=== PATIENT | female | born 1985 | race Caucasian/White ===

== ENCOUNTER 2022-08-12 13:34 | Outpatient (CLI) | payer MEDICAID, SELFPAY ==
[2022-08-12 21:52] LABS: Albumin* 4.8 g/dL (3.3-5.0); Chloride* 102 mmol/L (96-114); Potassium* 4.8 mmol/L (3.6-5.1); Sodium* 139 mmol/L (135-149)
[2022-08-12 21:54] LABS: Carbon Dioxide* 28 mmol/L (20-32); Cholesterol* 179 mg/dL (90-199); Creatinine* 0.7 mg/dL (0.5-1.5); Estimated Glomerular Filt Rate 115 ml/min
[2022-08-12 21:55] LABS: Alanine Aminotransferase* 65 U/L (4-35); Alkaline Phosphatase* 88 U/L (40-150); Aspartate Amino Transferase* 51 U/L (12-35); Bilirubin Total* 0.4 mg/dL (0.1-1.5); Blood Urea Nitrogen* 12 mg/dL (5-24); Calcium* 9.7 mg/dL (8.4-10.6); Glucose* 91 mg/dL (60-115); HDL Cholesterol* 47 mg/dL (>=50); LDL Cholesterol Calculated 108 mg/dL (<100); Total Protein* 7.7 g/dL (6.0-8.3); Triglycerides* 119 mg/dL (40-149)
[2022-08-12 23:45] LABS: GC DNA Amplified* NOT DETECTED (No Detected)
[2022-08-12 23:48] LABS: Chlamydia DNA Amplified* DETECTED (No Detected)
[2022-08-13 00:24] LABS: HIV 1/2/P24 Combo Screen* Negative (Negative)
[2022-08-13 00:31] LABS: Hepatitis C Virus Antibody* Negative (Negative)
[2022-08-14 20:14] LABS: Rapid Plasma Reagin (RPR) Non Reactive (Non Reactive)
== END 2022-08-12 13:35 | disposition home or self-care (01) ==
PROVIDERS: PCP Physician Assistant Medical; Visit Provider Physician Assistant Medical
DX: Z00.00 Encounter for general adult medical examination without abnormal findings (principal); R03.0 Elevated blood-pressure reading, without diagnosis of hypertension; Z13.6 Encounter for screening for cardiovascular disorders; Z13.29 Encounter for screening for other suspected endocrine disorder; Z11.3 Encounter for screening for infections with a predominantly sexual mode of transmission
CPT/HCPCS: 80053; 80061; 84443; 86592; 86703; 86803; 87086; 87491; 87591

== ENCOUNTER 2022-09-23 11:46 | Outpatient (CLI) | payer MEDICAID, SELFPAY ==
[2022-09-23 23:35] LABS: Chlamydia DNA Amplified* NOT DETECTED (No Detected); GC DNA Amplified* NOT DETECTED (No Detected)
== END 2022-09-23 11:47 | disposition home or self-care (01) ==
LOC: LKVREF 11:46
PROVIDERS: PCP Physician Assistant Medical; Visit Provider Physician Assistant Medical
DX: A74.9 Chlamydial infection, unspecified (principal)
CPT/HCPCS: 87491; 87591

== ENCOUNTER 2024-05-16 12:52 | Outpatient (CLI) | payer MEDICAID, SELFPAY | END 2024-05-16 12:53 | disposition home or self-care (01) | PROVIDERS: PCP Physician Assistant Medical; Visit Provider Physician Assistant Medical | DX: E66.9 Obesity, unspecified (principal) | CPT/HCPCS: 80053; 84443 ==

== ENCOUNTER 2024-10-24 18:47 | Emergency (ER) | payer MEDICAID, SELFPAY ==
--- NOTE | 2024-10-24 18:51 | CRLHL7_ITS ---
For Patients: As a result of the Century Cures Act, medical imaging exams and procedure reports are released immediately into your electronic medical record. You may view this report before your referring provider. If you have questions, please contact your health care provider. INDICATION: Leg pain and swelling. TECHNIQUE: Ultrasound venous duplex lower right extremity. Compression venous exam was performed using oshea-scale, color Doppler, and spectral Doppler analysis. COMPARISON: None. FINDINGS: Deep veins: Sonographic imaging demonstrates the right common femoral, deep femoral, superficial femoral, popliteal, posterior tibial and the contralateral left common femoral veins to be fully compressible with normal color Doppler blood flow. Superficial veins: Superficial thrombophlebitis involving a varicose vein in the right calf, approximately 10 centimeters in length. Greater saphenous vein is fully compressible. No popliteal cyst. IMPRESSION: Superficial thrombophlebitis involving a varicose vein in the right calf, approximately 10 centimeters in length. No right lower extremity DVT. Dictated by Jin Boyer MD @ 10/24/2024 8:15:41 PM (Electronically Signed)
[2024-10-24 18:57] VITALS: BP 139/93; PULSE 80; RESP 16; TEMP 36.5; O2SAT 99; BMI 42.1
--- NOTE | 2024-10-24 19:59 | ED.GENADULT ---
HPI - General Adult General Time Seen by Provider: 19:59 Date Seen: 10/24/24 Chief complaint: Lower Extremity Swelling Stated complaint: possible blood clot, from [place] Time Seen by Provider: 10/24/24 19:56 Source: patient, RN notes reviewed and old records reviewed Mode of arrival: ambulatory Limitations: no limitations History of Present Illness HPI narrative: 38-year-old female who comes in today with concern for pain and swelling of the right leg. This started after driving to [place] for [employer]. Denies fevers or chills, has not taken any hormonal contraceptives. Related Data Previous Rx's ?Medication ?Instructions ?Recorded bupropion HCl 150 mg 24 hr tablet, 150 mg PO QAM #90 tabs 09/12/24 extended release (Wellbutrin XL) naltrexone 50 mg tablet 25 mg (1/2 x 50 mg) PO QDAY #45 09/12/24 tabs Allergies Allergy/AdvReac Type Severity Reaction Status Date / Time No Known Drug Allergies Allergy Verified 10/24/24 19:00 PFSH PFSH Family History Paternal Grandfather Lung cancer Father High cholesterol Mother Thyroid disease Social History Narrative: Single- parent. 3 children ( 9, 13, 15 yo) Moved from [place] October 2019. Working in caregiving. Smoking Status: Never smoker Exam Narrative: Exam Narrative: General: well nourished , NAD Head: Atraumatic and normocephalic ENT: External ears and external nose are normal Eyes: Conjunctiva clear, pupils are equal reactive, external ocular motions are intact Neck: Full spontaneous range of motion of the neck Lungs: No respiratory distress Musculoskeletal: No tenderness or deformity Neurologic: No gross focal neurologic deficits Skin: 10 cm segment of tender from varicose vein of the right posterior medial lower leg with some surrounding redness Psych: Mood and affect are appropriate Const: Vital Signs, click to edit/add: Vital Signs - 24 hr 10/24/24 18:57 Temperature 97.7 F Pulse Rate [Right Pulse Oximeter] 80 Respiratory Rate 16 Blood Pressure [Ri ght Upper Arm] 139/93 H Pulse Oximetry 99 Oxygen Delivery Me thod Room Air Course Course ED Course: Patient seen and examined, reviewed ultrasound today which shows about a 10 cm segment of thrombosed varicose vein. No SVT or DVT seen otherwise. Discussed symptom management with patient, patient should start aspirin daily along with nonsteroidals for pain management, warm packs, and follow up with primary care. Vital Signs Vital signs: Initial Vital Signs Temperature 97.7 F 10/24/24 18:57 Temperature Source Temporal Artery Scan 10/24/24 18:57 Pulse Rate 80 10/24/24 18:57 Pulse Rhythm Regular 10/24/24 18:57 Pulse Strength 3+ Normal 10/24/24 18:57 Respiratory Rate 16 10/24/24 18:57 Blood Pressure 139/93 H 10/24/24 18:57 Blood Pressure Mean 108 H 10/24/24 18:57 Blood Pressure Position Sitting 10/24/24 18:57 Pulse Oximetry 99 10/24/24 18:57 Oxygen Delivery Method Room Air 10/24/24 18:57 Vital Signs Temperature 97.7 F 10/24/24 18:57 Pulse Rate 80 10/24/24 18:57 Respiratory Rate 16 10/24/24 18:57 Blood Pressure 139/93 H 10/24/24 18:57 Pulse Oximetry 99 10/24/24 18:57 Oxygen Delivery Method Room Air 10/24/24 18:57 Temperature 97.7 F 10/24/24 18:57 Pulse Rate 80 10/24/24 18:57 Respiratory Rate 16 10/24/24 18:57 Blood Pressure 139/93 H 10/24/24 18:57 Pulse Oximetry 99 10/24/24 18:57 Oxygen Delivery Method Room Air 10/24/24 18:57 Discharge Plan Discharge Clinical Impression: Thrombophlebitis Patient Disposition: Home, Self-Care Condition: Stable Instructions: Superficial Thrombophlebitis (ED) Additional Instructions: Take aspirin 81 mg daily for 2 weeks Warm packs daily Tylenol and Ibuprofen for pain Follow-up with your primary care provider in 7-10 days Activity Level: Activity as Tolerated Prescriptions: No Action bupropion HCl [Wellbutrin XL] 150 mg tablet extended release 24 hr 150 mg PO QAM Qty: 90 1RF Rx Instructions: once daily for mood support naltrexone 50 mg tablet 25 mg PO QDAY Qty: 45 1RF Rx Instructions: 1/2 tablet daily for weight management Follow Up/Referrals: Estela Vallejo PA-C [Primary Care Provider] - Stand Alone Forms: [employer] Info Instructions
== END 2024-10-24 20:26 | disposition home or self-care (01) ==
LOC: ED 20:25
PROVIDERS: Emergency Provider Family Medicine; PCP Physician Assistant Medical
DX: I80.9 Phlebitis and thrombophlebitis of unspecified site (principal)
CPT/HCPCS: 93971; 99283; 99284